=== PATIENT | female | born 1945 | race Caucasian/White ===

== ENCOUNTER 2016-06-06 19:54 | Inpatient (IN) | payer MEDICARE, OTHER ==
[2016-06-06] MEDS ORDERED: IPRATROPIUM/ALBUTEROL SULFATE 3 ML AMPUL.NEB NEB ONE (20:00)
--- NOTE | 2016-06-06 20:09 | ED Physician Documentation ---
General Adult - HISTORIAN Historian: patient - HPI Stated Complaint: sob Chief Complaint: General Adult Onset: days ago Timing: worse Severity: moderate Further Comments: yes (Pt is a 70 yo female from [place] with hx COPD and bronchitis. Pt has had [facility] admissions for pulmonary illnesses, and had fiberoptic bronchospy earlier this month as part of eval for chronic cough. Pt had been getting increasingly sob throughout the day today, and was acutely sob [place]. EMT's were called to local rest stop where pt was found to be acutely sob with SpO2 in the 70%'s and severe wheezing. Pt was given HFN tx en route to ER and presented with severe sob, wheezing, tachycardia and elevated blood pressure.) - ROS CONST: weakness EYES/ENT: none CVS/RESP: shortness of breath, cough. denies: chest pain GI/: none. denies: vomiting MS/SKIN/LYMPH: none - PAST HX Past History: COPD, hypertension, other (DM) Surgeries/Procedures: cholecystectomy, hysterectomy Allergies/Adverse Reactions: Allergies Allergy/AdvReac Type Severity Reaction Status Date / Time latex Allergy Verified 06/06/16 21:45 tetanus toxoid, adsorbed Allergy Verified 06/06/16 21:45 Home Medications: Ambulatory Orders Medication Instructions Recorded Aspirin EC [Ecotrin] 325 mg PO D 06/06/16 Bupropion HCl [Wellbutrin Sr] 150 mg PO BID 06/06/16 Calcium Carbonate/Vitamin D3 1 tab PO D 06/06/16 [Liquid Calcium 600-Vit D3 Sfgl] Carvedilol [Coreg] 25 mg PO BID 06/06/16 Cetirizine HCl [Zyrtec] 10 mg PO D 06/06/16 Clonidine [Catapres-Tts 3] 0.3 mg TOP WEEKLY AT 0600 06/06/16 Cranberry Fruit [Cranberry] 400 mg PO D 06/06/16 Docusate Sodium [Colace] 100 mg PO HS 06/06/16 Fluticasone Propionate [Flonase] 1 spray INH HS 06/06/16 Furosemide [Furosemide] 20 mg PO D 06/06/16 Gabapentin [Gabapentin] 600 mg PO BID 06/06/16 Ipratropium/Albuterol Sulfate 1 puff INH QID 06/06/16 [Iprat-Albut 0.5-3(2.5) mg/3 ml] Irbesartan [Avapro] 300 mg PO D 06/06/16 Liraglutide [Saxenda] 1.8 mg SQ D 06/06/16 Metformin HCl [Glucophage] 1,000 mg PO BID 06/06/16 Nystatin Powder [Nystop] 1 appl TOP BID 06/06/16 Fults-3S/Dha/Epa/Fish Oil [Fish 1,200 mg PO D 06/06/16 Oil 1,200 mg Softgel] Paroxetine HCl 20 mg PO BID 06/06/16 Ranitidine HCl 150 mg PO BID 06/06/16 Simvastatin [Zocor] 10 mg PO DAILY 06/06/16 Spironolactone [Aldactone] 25 mg PO BID 06/06/16 Topiramate [Topamax] 25 mg PO BID 06/06/16 clonazePAM [Klonopin] 0.5 mg PO HS PRN 06/06/16 gliPIZIDE [Glucotrol] 5 mg PO BID 06/06/16 - SOCIAL HX Smoking History: non-smoker - FAMILY HX Family History: No - REVIEWED ASSESSMENTS Nursing Assessment Reviewed: Yes Vitals Reviewed: Yes Progress - Progress Progress: CXR: Innumerable calcified granulomas are scattered throughout each lung. There is no confluent infiltrate or pleural effusion. Heart size and pulmonary vascularity are normal. Duoneb HFN Solu-medrol 125 mg IV Pulmicort HFN Albuterol HFN much improved. Levaquin 500 mg IV Troponin = 0.12 admit for r/o [place] and COPD exacerbation, admit to [facility]. - EKG/XRAY/CT EKG: rhythm (Sinus tachycardia, IL=591; non-specific ST, T-wave changes.) ED Results Lab/Radiology - Orders Orders: ED Orders Category Date Time Status Continuous EKG monitoring Q30M Care 06/06/16 19:57 Active Continuous Pulse Oximetry Q30M Care 06/06/16 19:[address] Saline Lock/IV NOW Care 06/06/16 19:57 Active CHEST 1 VIEW [RAD] Stat Exams 06/06/16 19:57 Ordered CBC/PLATELET/DIFF Routine Lab 06/06/16 19:57 Ordered CMP Routine Lab 06/06/16 19:57 Ordered CREATINE KINASE Routine Lab 06/06/16 19:57 Ordered TROPONIN I (cTnI) Stat Lab 06/06/16 19:57 Ordered Budesonide [Pulmicort] Med 06/06/16 21:00 Ordered 0.5 mg NEB BID Ipratropium/Albuterol Sulfate [Duoneb] Med 06/06/16 20:00 Discontinued 3 ml NEB NOW ONE methylPREDNISolone SOD SUCC [Solu-MEDROL] 125 mg Med 06/06/16 19:57 Discontinued 0.9 % Sodium Chloride [Sodium Chloride] 100 ml IV NOW Oxygen Daily Oxygen 06/06/16 20:00 Ordered EKG WITH COMPARISON Stat Ther 06/06/16 19:57 Ordered General Adult Physical Exam - PHYSICAL EXAM GENERAL APPEARANCE: moderate distress EENT: eye inspection normal, ENT inspection normal, pharynx normal NECK: normal inspection, supple RESPIRATORY: wheezes (moderate to severe; accessory muscle use) CVS: tachycardia ABDOMEN: soft, no organomegaly, normal bowel sounds BACK: normal inspection, no CVA tenderness SKIN: warm/dry, normal color EXTREMITIES: non-tender, normal range of motion, no edema NEURO: oriented X3, motor nml, sensation nml Discharge Clincal Impression: COPD exacerbation, Elevated troponin Dyspnea Qualifiers: Dyspnea type: shortness of breath Qualified Code(s): R06.02 - Shortness of breath Home Medications: Ambulatory Orders Aspirin EC [Ecotrin] 325 mg PO D 06/06/16 Bupropion HCl [Wellbutrin Sr] 150 mg PO BID 06/06/16 Calcium Carbonate/Vitamin D3 [Liquid Calcium 600-Vit D3 Sfgl] 1 tab PO D Carvedilol [Coreg] 25 mg PO BID 06/06/16 Cetirizine HCl [Zyrtec] 10 mg PO D 06/06/16 Clonidine [Catapres-Tts 3] 0.3 mg TOP WEEKLY AT 0600 06/06/16 Cranberry Fruit [Cranberry] 400 mg PO D 06/06/16 Docusate Sodium [Colace] 100 mg PO HS 06/06/16 Fluticasone Propionate [Flonase] 1 spray INH HS 06/06/16 Furosemide [Furosemide] 20 mg PO D 06/06/16 Gabapentin [Gabapentin] 600 mg PO BID 06/06/16 Ipratropium/Albuterol Sulfate [Iprat-Albut 0.5-3(2.5) mg/3 ml] 1 puff INH QID Irbesartan [Avapro] 300 mg PO D 06/06/16 Liraglutide [Saxenda] 1.8 mg SQ D 06/06/16 Metformin HCl [Glucophage] 1,000 mg PO BID 06/06/16 Nystatin Powder [Nystop] 1 appl TOP BID 06/06/16 Fults-3S/Dha/Epa/Fish Oil [Fish Oil 1,200 mg Softgel] 1,200 mg PO D 06/06/16 Paroxetine HCl 20 mg PO BID 06/06/16 Ranitidine HCl 150 mg PO BID 06/06/16 Simvastatin [Zocor] 10 mg PO DAILY 06/06/16 Spironolactone [Aldactone] 25 mg PO BID 06/06/16 Topiramate [Topamax] 25 mg PO BID 06/06/16 clonazePAM [Klonopin] 0.5 mg PO HS PRN 06/06/16 gliPIZIDE [Glucotrol] 5 mg PO BID 06/06/16 Condition: Stable Disposition: 09 ADMITTED INPATIENT Decision to Admit: [id number] Decision Time: 22:50
[2016-06-06] MEDS ORDERED: BUDESONIDE 0.5MG/2ML AMPUL.NEB NEB ONE (20:13)
[2016-06-06] MEDS ORDERED: ALBUTEROL SULFATE 2.5 MG/3 ML AMPUL.NEB NEB ONE (20:35)
[2016-06-06 21:00] LABS: eGFR (African) > 60; eGFR (Non-African) > 60
[2016-06-06] MEDS ORDERED: BUDESONIDE 0.5MG/2ML AMPUL.NEB NEB SCH (21:00)
[2016-06-06 21:05] LABS: BASOPHILS % 0.6 (0.0-1.5); EOSINOPHILS % 16.5 % (0.0-6.8); LYMPHOCYTES # 2.4 # k/uL (0.6-4.0); MEAN CORPUSCULAR HEMOGLOBIN 30.7 pg (28.0-34.0); MONOCYTES # 0.3 # k/uL (0.0-0.9); MONOCYTES % 3.5 % (0.0-11.0); NEUTROPHILS # 4.8 # k/uL (1.4-7.7)
[2016-06-06] MEDS ORDERED: guaiFENesin/CODEINE PHOS 30ML BOTTLE PO PRN (22:00)
[2016-06-06] MEDS ORDERED: guaiFENesin/CODEINE PHOS 30ML BOTTLE PO ONE (22:10)
[2016-06-06] MEDS ORDERED: clonazePAM 0.5 MG TABLET PO PRN (22:36)
[2016-06-06] MEDS ORDERED: LEVOFLOXACIN 500MG/D5W 100ML 100 ML IV ONE (23:06)
[2016-06-06] MEDS: LEVOFLOXACIN 500MG/D5W 100ML 500 MG in PREMIX BAG 1 BAG IV SCH (23:24)
[2016-06-06] MEDS: IPRATROPIUM/ALBUTEROL SULFATE 3 ML AMPUL.NEB NEB SCH (23:29)
[2016-06-06 23:47] VITALS: BMI 31.7
[2016-06-07] MEDS ORDERED: CARVEDILOL 12.5 MG TABLET PO ONE (04:28)
--- NOTE | 2016-06-07 06:25 | Diagnostic Imaging Report ---
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 There is no confluent infiltrate or pleural effusion. Heart size and pulmonary vascularity are normal. Impression: Innumerable calcified granulomas.. ~ Electronically signed on Jun 06, 2016 8:40:51 PM SUPERVISOR [employer]ER[employer] CONSULTANT by: John GASTELUM
[2016-06-07] MEDS: IPRATROPIUM/ALBUTEROL SULFATE 3 ML AMPUL.NEB NEB SCH ×2 (06:45→12:15)
[2016-06-07 07:38] LABS: BASOPHILS % 0.1 (0.0-1.5); EOSINOPHILS % 0.2 % (0.0-6.8); LYMPHOCYTES # 0.7 # k/uL (0.6-4.0); MEAN CORPUSCULAR HEMOGLOBIN 29.8 pg (28.0-34.0); MONOCYTES % 0.6 % (0.0-11.0); NEUTROPHILS # 2.9 # k/uL (1.4-7.7)
[2016-06-07] MEDS ORDERED: FAMOTIDINE 20 MG TABLET PO SCH (09:00)
[2016-06-07] MEDS ORDERED: IRBESARTAN 300 MG TABLET PO SCH (09:00)
[2016-06-07] MEDS ORDERED: GABAPENTIN 300 MG CAPSULE PO SCH (09:00)
[2016-06-07] MEDS ORDERED: TOPIRAMATE 50 MG TABLET PO SCH (09:00)
[2016-06-07] MEDS ORDERED: FUROSEMIDE 20 MG TABLET PO SCH (09:00)
[2016-06-07] MEDS ORDERED: SALINE FLUSH 10 ML DISP.SYRIN IVF SCH (09:00)
[2016-06-07] MEDS ORDERED: SPIRONOLACTONE 25 MG TABLET PO SCH (09:00)
[2016-06-07] MEDS ORDERED: buPROPion 150 MG TABLET.ER PO SCH (09:00)
[2016-06-07] MEDS ORDERED: ASPIRIN EC 325 MG TABLET.DR PO SCH (09:00)
[2016-06-07] MEDS ORDERED: methylPREDNISolone SOD SUCC 80 MG in 0.9 % SODIUM CHLORIDE 100 ML IV SCH (09:00)
[2016-06-07] MEDS ORDERED: CARVEDILOL 12.5 MG TABLET PO SCH (09:00)
[2016-06-07] MEDS ORDERED: LEVOFLOXACIN 500MG/D5W 100ML 100 ML IV ONE (09:18)
[2016-06-07] MEDS ORDERED: methylPREDNISolone SOD SUCC 40 MG/ML VIAL ONE (09:19)
[2016-06-07] MEDS: LEVOFLOXACIN 500MG/D5W 100ML 500 MG in PREMIX BAG 1 BAG IV SCH (09:28)
[2016-06-07 09:36] LABS: eGFR (African) > 60; eGFR (Non-African) > 60
--- NOTE | 2016-06-07 13:02 | History and Physical Report ---
History of Present Illnes - History of Present Illness Reason for Visit: COPD exacerbation History of Present Illness: This is a 70 year old female that was admitted through the emergency room for shortness of breath and low oxygen saturation. She states she is from [place] and was driving home from [place] when they stopped at the rest stop [address]. She notes on her way back to the car she became very short of breath and could not make it back to the car. She states she asked her to call 911. She states they brought her to the hospital and gave her breathing treatments in the ER, and put her on oxygen. She states she is feeling much better now. She states she has a history of lung disease and this is her third hospitalization for shortness of breath since 04/16/2016. She states she has a nebulizer at home and does breathing treatment regularly. She notes her primary care physician is trying to complete a work up to determine what is causing her recurrent episodes of respiratory distress. She states now she is feeling well and would like to go home today. She denies any other concerns at this time. - Past Medical History Cardiac: HTN Pulmonary: Bronchitis (Chronic), COPD Endocrine: Diabetes - Past Surgical History Past Surgical History: None - Past Social History Smoke: No Alcohol: None Drugs: None Lives: With Family () - Health Maintenance Health Maintenance: Influenza Vaccine, Pneumococcal Vaccine Influenza Vaccine: Current for this Influenza Season Pneumonia Vaccine: Yes (Unsure of dates) Resuscitation Status: Resusciation Status Resuscitation Status Full Code Review of Systems - Review of Systems Constitutional: negative: Fever, Chills, Weakness Eyes: negative: vision change, redness ENT: negative: Ear Pain, Ear Discharge, Nose Pain, Nose Discharge, Nose Congestion, Mouth Pain, Throat Pain Respiratory: Cough (chronic), Shortness of Breath, SOB with Excertion (chronic) , Wheezing Cardiovascular: negative: Chest Pain, Palpitations, Edema, Light Headedness Gastrointestinal: negative: Nausea, Vomiting, Abdominal Pain, Diarrhea, Constipation Genitourinary: negative: Dysuria, Frequency, Incontinence Musculoskeletal: negative: Neck Pain, Shoulder Pain, Arm Pain Skin: negative: Rash Neurological: negative: Weakness, Numbness, Change in Speech, Confusion - Medications/Allergies Allergies/Adverse Reactions: Allergies Allergy/AdvReac Type Severity Reaction Status Date / Time latex Allergy Verified 06/06/16 21:45 tetanus toxoid, adsorbed Allergy Verified 06/06/16 21:45 Home Medications: Home Medications Aspirin EC [Ecotrin] 325 mg PO D 06/06/16 Bupropion HCl [Wellbutrin Sr] 150 mg PO BID 06/06/16 Calcium Carbonate/Vitamin D3 [Liquid Calcium 600-Vit D3 Sfgl] 1 tab PO D Carvedilol [Coreg] 25 mg PO BID 06/06/16 Cetirizine HCl [Zyrtec] 10 mg PO D 06/06/16 Clonidine [Catapres-Tts 3] 0.3 mg TOP WEEKLY AT 0600 06/06/16 Cranberry Fruit [Cranberry] 400 mg PO D 06/06/16 Docusate Sodium [Colace] 100 mg PO HS 06/06/16 Fluticasone Propionate [Flonase] 1 spray INH HS 06/06/16 Furosemide [Furosemide] 20 mg PO D 06/06/16 Gabapentin [Gabapentin] 600 mg PO BID 06/06/16 Ipratropium/Albuterol Sulfate [Iprat-Albut 0.5-3(2.5) mg/3 ml] 1 puff INH QID Irbesartan [Avapro] 300 mg PO D 06/06/16 Liraglutide [Saxenda] 1.8 mg SQ D 06/06/16 Metformin HCl [Glucophage] 1,000 mg PO BID 06/06/16 Nystatin Powder [Nystop] 1 appl TOP BID 06/06/16 [place]-3S/Dha/Epa/Fish Oil [Fish Oil 1,200 mg Softgel] 1,200 mg PO D 06/06/16 Paroxetine HCl 20 mg PO BID 06/06/16 Ranitidine HCl 150 mg PO BID 06/06/16 Simvastatin [Zocor] 10 mg PO DAILY 06/06/16 Spironolactone [Aldactone] 25 mg PO BID 06/06/16 Topiramate [Topamax] 25 mg PO BID 06/06/16 clonazePAM [Klonopin] 0.5 mg PO HS PRN 06/06/16 gliPIZIDE [Glucotrol] 5 mg PO BID 06/06/16 Current Inpatient Medications: Current Inpatient Medications Albuterol/Ipratropium (Duoneb) 3 ml NEB Q6 [facility] Last Admin: 06/07/16 12:15 Dose: 3 ml Aspirin (Ecotrin) 325 mg PO D [facility] Last Admin: 06/07/16 09:10 Dose: 325 mg Bupropion HCl (Wellbutrin Sr) 150 mg PO BID [facility] Last Admin: 06/07/16 09:12 Dose: 150 mg Carvedilol (Coreg) 25 mg PO BID [facility] Last Admin: 06/07/16 09:10 Dose: 25 mg Clonazepam (Klonopin) 0.5 mg PO HS PRN PRN Reason: Anxiety Docusate Sodium (Colace) 100 mg PO HS [facility] Famotidine (Pepcid) 20 mg PO BID [facility] Last Admin: 06/07/16 09:11 Dose: 20 mg Fluticasone Propionate (Flonase Nasal [place]) 1 spray NS HS [facility] Furosemide (Lasix) 20 mg PO D [facility] Last Admin: 06/07/16 09:11 Dose: 20 mg Gabapentin (Neurontin) 600 mg PO BID [facility] Last Admin: 06/07/16 09:11 Dose: 600 mg Glipizide (Glucotrol) 5 mg PO BID [facility] Last Admin: 06/07/16 09:28 Dose: 5 mg Guaifenesin/Codeine Phosphate (Robitussin Ac) 10 ml PO Q4 PRN PRN Reason: Cough Last Admin: 06/06/16 22:30 Dose: 10 ml Levofloxacin/Dextrose 500 mg/ (PREMIX BAG) 100 mls @ 100 mls/hr IV DAILY [facility] Last Admin: 06/07/16 09:28 Dose: 100 mls/hr Methylprednisolone Sodium Succinate 80 mg/ Sodium Chloride 101.28 mls @ 101.28 mls/hr IV DAILY [facility] Last Admin: 06/07/16 09:29 Dose: 101.28 mls/hr Irbesartan (Irbesartan) 300 mg PO D [facility] Last Admin: 06/07/16 09:11 Dose: 300 mg Metformin HCl (Glucophage) 1,000 mg PO BID [facility] Last Admin: 06/07/16 09:10 Dose: 1,000 mg Simvastatin (Zocor) 10 mg PO HS [facility] Sodium Chloride (Normal Saline Flush) 3 ml IVF BID [facility] Last Admin: 06/07/16 09:28 Dose: 3 ml Spironolactone (Aldactone) 25 mg PO BID [facility] Last Admin: 06/07/16 09:10 Dose: 25 mg Topiramate (Topamax) 25 mg PO BID [facility] Last Admin: 06/07/16 09:12 Dose: 25 mg Exam - Exam Vital Signs: Vital Signs (72 hours) 06/06/16 06/06/16 06/06/16 22:41 22:55 23:00 Temperature 98.6 F Pulse Rate 101 H Pulse Rate [ 108 H 100 H Pulse ox] Respiratory 20 22 Rate Blood Pressure [Left Arm] Blood Pressure 162/75 159/74 [Right Arm] O2 Sat by Pulse 97 97 95 Oximetry 06/06/16 06/06/16 06/07/16 23:15 23:30 00:00 Temperature 98.6 F Pulse Rate 100 H 100 H Pulse Rate [ 99 H Pulse ox] Respiratory 24 Rate Blood Pressure [Left Arm] Blood Pressure 162/75 [Right Arm] O2 Sat by Pulse 95 95 95 Oximetry 06/07/16 06/07/16 06/07/16 02:00 04:00 06:00 Temperature 98.3 F 98.6 F Pulse Rate 99 H 102 H 96 H Pulse Rate [ 100 H 91 H Pulse ox] Respiratory 18 Rate Blood Pressure 124/58 149/65 [Left Arm] Blood Pressure [Right Arm] O2 Sat by Pulse 96 96 91 L Oximetry 06/07/16 06/07/16 06/07/16 08:00 10:00 11:43 Temperature 99.1 F Pulse Rate 103 H 102 H 107 H Pulse Rate [ 105 H Pulse ox] Respiratory 18 Rate Blood Pressure 129/70 [Left Arm] Blood Pressure [Right Arm] O2 Sat by Pulse 98 98 Oximetry 06/07/16 11:46 Temperature Pulse Rate Pulse Rate [ Pulse ox] Respiratory Rate Blood Pressure [Left Arm] Blood Pressure [Right Arm] O2 Sat by Pulse 96 Oximetry General: Alert, Oriented to Person, Oriented to Place, Oriented to Time, Cooperative, No acute distress HEENT: Atraumatic, PERRLA, EOMI, Mouth Mucous membr. moist/[place], Nose Mucous membr. moist/[place]. No: Pharyngeal Erythema, Tonsillar Exudate, Tonsillar Swelling Neck: Normal Range of Motion Lungs: Normal air movement, Speaks full Sentences, Wheezes (scattered). No: Respiratory Distress Cardiovascular: Regular rate, Normal S1, Normal S2, No murmurs. No: Gallops, Rubs, Murmur Abdomen: Normal bowel sounds, Soft, No tenderness, No hepatospenomegaly, No masses Integumentary: Normal, [place], Warm, Dry Extremities: No clubbing, No cyanosis, No edema Neurological: Normal gait, Normal speech (runs out of breath when she talks quickly - states that is normal for her), Strength Equal Bilat, Normal tone, Sensation intact Psych/Mental Status: Mental status NL, Mood NL, Appropriate Affect, Intact Judgment - Laboratory Results Laboratory Results: Laboratory Results 06/07/16 06/07/16 06/07/16 03:05 07:05 07:10 WBC RBC Hgb Hct MCV MCH MCHC RDW Plt Count Neut % (Auto) Lymph % (Auto) [place] % (Auto) Eos % (Auto) Baso % (Auto) Neut # Lymph # [place] # Eos # Baso # Reactive Lymphs % Reactive Lymphs # Sodium 134 L Potassium 3.9 Chloride 103 Carbon Dioxide 25 BUN 16 Creatinine 0.8 Estimated Creat Clear 93 Est GFR ( Amer) > 60 Est GFR (Non-Af Amer) > 60 Glucose 188 H Calcium 10.3 Total Bilirubin 0.3 AST 17 ALT 13 Alkaline Phosphatase 71 Creatine Kinase 33 CK-MB (CK-2) Cancelled Troponin I 0.12 H 0.13 H Total Protein 6.8 Albumin 4.6 06/07/16 06/07/16 07:10 07:10 WBC 3.70 L RBC 3.98 Hgb 11.9 L Hct 37.5 MCV 94.4 MCH 29.8 MCHC 31.6 RDW 12.8 Plt Count 236 Neut % (Auto) 79.8 H Lymph % (Auto) 18.5 [place] % (Auto) 0.6 Eos % (Auto) 0.2 Baso % (Auto) 0.1 Neut # 2.9 Lymph # 0.7 [place] # 0.0 Eos # 0.0 Baso # 0.0 Reactive Lymphs % 0.8 Reactive Lymphs # 0.0 Sodium Potassium Chloride Carbon Dioxide BUN Creatinine Estimated Creat Clear Est GFR ( Amer) Est GFR (Non-Af Amer) Glucose Calcium Total Bilirubin AST ALT Alkaline Phosphatase Creatine Kinase 29 CK-MB (CK-2) Troponin I Total Protein Albumin Assessment/Plan - Assessment/Plan (1) COPD exacerbation Status: Acute Current Visit: Yes Assessment: Patient is on O2 and O2 sat is is the upper 90s. She has scattered wheezing on exam but is moving air well. She notes mild shortness of breath when she is talking a lot and when she walks to the bathroom and back. Plan: Continue breathing treatments QID. Will try to titrate oxygen. Steroids given in ED. (2) Elevated troponin Status: Acute Current Visit: Yes Assessment: Troponin slighly elevated at time of admission at 0.12. Troponin remains at 0.12 this morning. Patient denies any chest pain. Plan: Recheck troponin. (3) HTN (hypertension) Status: Chronic Current Visit: Yes Assessment: Blood pressure is well controlled on home medications. Plan: Continue home medications. Continue to monitor BP. (4) Tachycardia Status: Acute Current Visit: Yes Assessment: Heart rate is elevated. Rhythm is normal. Elevation may be due to albuterol breathing treatments. Plan: Continue to monitor heart rate. VTE Assessment - RISK FACTOR SCORE VTE RISK FACTOR SCORES: AGE OVER 60 YEARS, ACUTE RESPIRATORY FAILURE/SEVERE COPD
--- NOTE | 2016-06-07 14:24 | Discharge Summary ---
Discharge Summary - Discharge Sumary History of Present Illness: This is a 70 year old female that was admitted overnight for a COPD exacerbation. She was passing through [facility] on her way home in [place]. She notes two recent hospitalizations for COPD exacerbations. She states she has breathing treatment and inhalers to use at home and notes she has been using them as prescribed. She states she is feeling much better and has been off oxygen since finishing breakfast this morning. She states she feels ready to go home and would like to be discharged today. She denies any other concerns today. Additional Instructions: Script written for prednisone. Start taking on 2016. Continue duonebs four times a day. Follow up with your primary care physician later this week. Condition at Discharge: Stable Home Medications: Ambulatory Orders Medication Instructions Recorded Aspirin EC [Ecotrin] 325 mg PO D 06/06/16 Bupropion HCl [Wellbutrin Sr] 150 mg PO BID 06/06/16 Calcium Carbonate/Vitamin D3 1 tab PO D 06/06/16 [Liquid Calcium 600-Vit D3 Sfgl] Carvedilol [Coreg] 25 mg PO BID 06/06/16 Cetirizine HCl [Zyrtec] 10 mg PO D 06/06/16 Clonidine [Catapres-Tts 3] 0.3 mg TOP WEEKLY AT 0600 06/06/16 Cranberry Fruit [Cranberry] 400 mg PO D 06/06/16 Docusate Sodium [Colace] 100 mg PO HS 06/06/16 Fluticasone Propionate [Flonase] 1 spray INH HS 06/06/16 Furosemide 20 mg PO D 06/06/16 Gabapentin 600 mg PO BID 06/06/16 Ipratropium/Albuterol Sulfate 1 puff INH QID 06/06/16 [Iprat-Albut 0.5-3(2.5) mg/3 ml] Irbesartan [Avapro] 300 mg PO D 06/06/16 Liraglutide [Saxenda] 1.8 mg SQ D 06/06/16 Metformin HCl [Glucophage] 1,000 mg PO BID 06/06/16 Nystatin Powder [Nystop] 1 appl TOP BID 06/06/16 [place]-3S/Dha/Epa/Fish Oil [Fish 1,200 mg PO D 06/06/16 Oil 1,200 mg Softgel] Paroxetine HCl 20 mg PO BID 06/06/16 Ranitidine HCl 150 mg PO BID 06/06/16 Simvastatin [Zocor] 10 mg PO DAILY 06/06/16 Spironolactone [Aldactone] 25 mg PO BID 06/06/16 Topiramate [Topamax] 25 mg PO BID 06/06/16 clonazePAM [Klonopin] 0.5 mg PO HS PRN 06/06/16 gliPIZIDE [Glucotrol] 5 mg PO BID 06/06/16 Consultations this Visit: None Procedures this Visit: None Allergies/Adverse Reactions: Allergies Allergy/AdvReac Type Severity Reaction Status Date / Time latex Allergy Verified 06/06/16 21:45 tetanus toxoid, adsorbed Allergy Verified 06/06/16 21:45 Discharge Summary: The patient will be discharged to home today. She is traveling with her who is in agreement with the plan for discharge today. She is to follow up with her primary care physician this week. She is to continue breathing treatments four times daily. She is to start taking oral predisone tomorrow. She is to go to the nearest ER with any shortness of breath. Hospital Course: This patient was admited though the ER for shortness of breath and low O2 saturation. She was started on oxygen and breathing treatments to which she responded well. She was found to have numerous granuloma on chest xray which she states is consistant with previous findings. She was treated with levaquin and steroids by the ER physicain for findings on chest xray and significant shortness of breath. She was also found to have a small bump in her troponin at 0.12. Serial troponins were drawn and her troponin remained stable. She was weaned from the oxygen and her oxygen saturation remained stable in the upper 90s. Her heartrate was elevated thoughout most of her hospital stay, however she states this is due to the breathing treatments. She states she is feeling well and would like to be discharged to home. Her condition and lab results were discussed with Dr. Dana MD who agrees that she can be discharged at this time.
[2016-06-07 14:36] VITALS: BP 135/75
[2016-06-07] MEDS ORDERED: DOCUSATE SODIUM 100 MG CAPSULE PO SCH (21:00)
[2016-06-07] MEDS ORDERED: SIMVASTATIN 20 MG TABLET PO SCH (21:00)
[2016-06-07] MEDS ORDERED: FLUTICASONE PROPIONATE 120 SPRAY/16 GR BOTTLE NS SCH (21:00)
== END 2016-06-07 15:25 | disposition home or self-care (01) | DRG 192 ==
LOC: ED 19:54 → SOUTH 22:39
PROVIDERS: ADMIT Physician Assistant; ATTEND Physician Assistant
DX: J44.1 Chronic obstructive pulmonary disease with (acute) exacerbation (principal); I10 Essential (primary) hypertension; R00.0 Tachycardia, unspecified
CPT/HCPCS: 36415; 71010; 80053; 82550; 82553; 83880; 84484; 85025; 94640; 94760; 99222; 99238; 99284; J1956; J2920; J2930; J3490; J7626; J1030; S1016